=== PATIENT | male | born 1955 | race Caucasian/White ===

== ENCOUNTER 2022-01-15 15:43 | Outpatient (CLI) | payer MEDICARE, OTHER ==
--- NOTE | 2022-01-16 08:48 | XRAY Report ---
PROCEDURE: Hip w/Pelvis 4V LT INDICATIONS: LEFT HIP PAIN TECHNIQUE: AP pelvis with lateral view(s) of the left hip(s). COMPARISON: None. FINDINGS: Bones: No fractures or dislocations. Both hips have severe degenerative changes with loss of the eriberto int space, subchondral sclerosis, and subchondral cystic changes consistent with severe osteoarthriti s. Pelvic ring appears intact. No suspicious bony lesions. Soft tissues: The visualized bowel gas pattern is normal. No suspicious soft tissue calcifications. IMPRESSION: Severe osteoarthritis of both hips. Reviewed by: Mirza Mcadams on 01/16/2022 8:47 AM PDT Approved by: Mirza Mcadams on 01/16/2022 8:47 AM PDT Station ID: [id number]
== END 2022-01-15 15:44 | disposition home or self-care (01) ==
LOC: DI 15:43
DX: M16.0 Bilateral primary osteoarthritis of hip (principal)

== ENCOUNTER 2023-03-19 08:00 | Outpatient (CLI) | payer MEDICARE, OTHER ==
--- NOTE | 2023-03-19 15:46 | XRAY Report ---
PROCEDURE: Hip BILAT INDICATIONS: BILAT HIP PAIN TECHNIQUE: 3 views of the hip were acquired. COMPARISON: None. FINDINGS: Bones: Bilateral nonuniform joint space narrowing with associated subchondral cystic change and bony deformity. Soft tissues: No suspicious soft tissue calcifications or masses. IMPRESSION: Marked bilateral hip osteoarthritis. Kellgren-Hakeem scale of osteoarthritis: 4 Reviewed by: Jaya Molina on 03/19/2023 3:45 PM PDT Approved by: Jaya Molina on 03/19/2023 3:45 PM PDT Station ID: [id number]
== END 2023-03-19 23:59 | disposition home or self-care (01) ==
LOC: DI.WOS 08:00
PROVIDERS: ATTEND Physician Assistant Surgical
DX: M16.0 Bilateral primary osteoarthritis of hip (principal)

== ENCOUNTER 2023-07-29 14:57 | Outpatient (CLI) | payer MEDICARE, OTHER ==
[2023-07-29 15:29] LABS: CREATININE 0.9 mg/dL (0.6-1.3)
== END 2023-07-29 14:58 | disposition home or self-care (01) ==
LOC: LAB 14:57
PROVIDERS: ATTEND Otolaryngology
DX: H90.42 Sensorineural hearing loss, unilateral, left ear, with unrestricted hearing on the contralateral side (principal)
CPT/HCPCS: 36415; 82565

== ENCOUNTER 2023-08-03 13:53 | Outpatient (CLI) | payer MEDICARE, OTHER ==
[~2023-08-03 13:53] MED LIST: GADOTERATE MEGLUMINE 10 MMOL/20 ML VIAL ONE; GADOTERATE MEGLUMINE 5 MMOL/10 ML VIAL ONE
[2023-08-03] MEDS ORDERED: GADOTERATE MEGLUMINE 10 MMOL/20 ML VIAL IVP ONE (19:04)
[2023-08-03] MEDS ORDERED: GADOTERATE MEGLUMINE 5 MMOL/10 ML VIAL IVP ONE (19:05)
--- NOTE | 2023-08-03 21:11 | MRI Report ---
PROCEDURE: IAC'S W/WO INDICATIONS: HEARING LOSS CONTRAST: clariscan 23.2ml TECHNIQUE: Noncontrast sagittal T1 spin echo, axial FLAIR, axial gradient echo, axial diffusion and ADC through the brain. Axial thin-slice 3D CISS, coronal balanced GE, axial T1 spin echo with fat saturation thr ough the internal auditory canals. After the administration of contrast, thin slice axial and lee l T1 spin echo with fat saturation through the internal auditory canals, and axial T1 spin echo with fat saturation through the brain. COMPARISON: None. FINDINGS: Image quality: Excellent. No cerebellopontine angle masses. Inner ear structures appear normally formed. Visualized cranial ne rves demonstrate no areas of abnormal enhancement, signal or mass lesion. The ventricular system and cortical sulci demonstrate atrophy, consistent for patient's stated age. There are areas of hyperintense T2/FLAIR signal in the periventricular and subcortical white matter. There is no acute intra or extra-axial fluid collection. No acute hemorrhage, mass lesion or midlin e shift. Brainstem is unremarkable. There are no areas of restricted diffusion. Globes are symmetr ical. Sinuses are aerated. Osseous structures are intact. IMPRESSION: 1. No acute intracranial process. 2. Visualized cranial nerves demonstrate no areas of abnormal enhancement, signal or mass lesion. Reviewed by: Naomi Rao MD on 08/03/2023 9:09 PM PST Approved by: Naomi Rao MD on 08/03/2023 9:09 PM PST Station ID: [id number]
== END 2023-08-03 13:54 | disposition home or self-care (01) ==
LOC: DI 13:53
PROVIDERS: ATTEND Otolaryngology
DX: H90.42 Sensorineural hearing loss, unilateral, left ear, with unrestricted hearing on the contralateral side (principal); H93.299 Other abnormal auditory perceptions, unspecified ear; H93.12 Tinnitus, left ear
CPT/HCPCS: 70553; A9575